=== PATIENT | male | born 1965 | race Caucasian/White ===

== ENCOUNTER 2021-07-29 08:27 | Emergency (ER) | payer MEDICARE, MEDICAID, SELFPAY ==
--- NOTE | ~2021-07-29 | XR_ITS ---
EXAMINATION: XR CHEST CLINICAL INFORMATION: Cough COMPARISON: None TECHNIQUE: 2 views of the chest were obtained. FINDINGS: No significant abnormality is noted involving the heart, lungs, mediastinum, bony thorax or soft tissues. XR/XR chest 2V IMPRESSION: Unremarkable examination.
[2021-07-29 08:32] VITALS: BP 137/90; BP 160/90; PULSE 100; PULSE 110; RESP 18; TEMP 36.9; O2SAT 96; O2SAT 99; BMI 25.3
--- NOTE | 2021-07-29 09:26 | ED_ITS ---
HPI - Psych General Chief Complaint: Psychiatric Symptoms Stated Complaint: SI,VOLUNTARY Time Seen by Provider: 07/29/21 09:06 Source: patient and EMS Mode of arrival: EMS Limitations: no limitations History of Present Illness HPI Narrative: 56 yo male with history of MS on Ocrevus Q 6 months here after making statement last evening I just want to end it all. Patient denies feeling suicidal today. He reports he was very frustrated last evening and overwhelmed with his MS diagnosis. Said to his I want to end it all. patient tells me now it was a stupid thing to say and I was just frustrated. patient currently denies any suicidal or homicidal ideations. Denies any hallucinations. He tells me he does have intermittent depression which he relates to his MS diagnosis. Patient tells me does go to an [facility] at [place] and has available to him psychiatrist therapist. He is complaining of a cough which is after the last 2 weeks. He denies any fever, shortness of breath, leg swelling or pain, chest pain. Related Data Allergies Allergy/AdvReac Type Severity Reaction Status Date / Time No Known Allergies Allergy Verified 07/29/21 08:40 Review of Systems Review of Systems: Yes all other systems are reviewed and are negative Constitutional: Constitutional: Reports no additional constitutional complaints, Denies body ache(s), Denies chills, Denies fever(s), Denies headache(s) and Denies weakness Eyes: Eyes: Reports no additional eye complaints and Denies change in vision ENT: Reports system reviewed and no additional complaints, except as documented, Denies dizziness, Denies headache(s), Denies nasal congestion, Denies nasal discharge and Denies neck pain Cardiovascular: Cardiovascular: Reports no additional cardiovascular complaints, Denies chest pain, Denies leg edema and Denies dyspnea Respiratory: Respiratory: Reports no additional respiratory complaints, Reports cough and Denies dyspnea Gastrointestinal: Gastrointestinal: Reports no additional gastrointestinal complaints, Denies abdominal pain, Denies diarrhea, Denies nausea and Denies vomiting Genitourinary: Genitourinary: Denies urinary incontinence Musculoskeletal: Musculoskeletal: Reports no additional musculoskeletal complaints, Denies back pain, Denies arthralgias, Denies joint swelling, Denies neck pain, Denies numbness and Denies tingling Integumentary/Breasts: Skin/Breast: Reports system reviewed and no additional complaints, except as docu and Denies rash Neurologic: Reports system reviewed and no additional complaints, except as documented, Denies dizziness, Denies headache(s), Denies numbness, Denies tingling and Denies weakness Psychiatric: Psychiatric: Denies anxiety, Reports depression, Denies visual hallucinations, Denies hallucinations, Denies homicidal ideation and Denies suicidal ideation PMF Past Medical History Attestation statement: The following information was validated with the patient. Source: old records reviewed Medical History (Reviewed 07/29/21 @ 09: by Talia Garrido NP) Abnormal gait due to muscle weakness MS (multiple sclerosis) Surgical History (Reviewed 07/29/21 @ : by Talia Garrido NP) No pertinent past surgical history Social History Social History (Reviewed 07/29/21 @ : by Talia Garrido NP) Advance Directives: No Advance Directives Information Provided: No Physical Exam Vital Signs: Vital Signs: Last Vital Signs Temp 98.9 F 07/29/21 11:08 Pulse 90 07/29/21 11:08 Resp 15 07/29/21 11:08 BP 145/92 H 07/29/21 11:08 Pulse Ox 96 07/29/21 11:08 BMI result Body Mass Index 25.3 Const: General: cooperative, healthy appearing, comfortable and no acute distress Orientation/consciousness: patient oriented x3 Limitations: no limitations HENMT: Head: Yes normal to inspection Ears: hearing grossly normal bilat erally General nose exam: Normal external nose present Face and sinus: Yes normal facial exam Mouth: Normal oral and palatal mucosa present Throat: Yes posterior oropharynx normal Eyes: General: appearance normal, both eyes and all related structures Pupils: Equal, round and reactive pupils present Neck: Neck: Yes normal visual inspection Chest: Chest palpation & inspection: normal inspection of the chest Resp: Effort & Inspection: normal respiratory effort Auscultation: clear to auscultation bilaterally Cardio: Rate: regular rate Rhythm: regular rhythm Peripheral pulses: Peripheral pulses 2+ throughout GI: Inspection: Yes normal to inspection Palpation (GI): Soft to palpation and nontender Auscultation: normal bowel sounds Back/Spine/Pelvis: Thoracic/Lumbar Spine: thoracic and lumbar spine normal to inspection Skin: General skin exam: no rashes or lesions noted Neuro: Other: WC bound at baseline-LE weakness General: patient oriented x3 and normal sensation to monofilament Cranial nerves: Yes CN's II-XII intact bilaterally and Yes Equal, round and reactive pupils present Extrem: General: Yes normal to inspection Course Course Course Narrative: 56 yo male here after making vague SI statement last evening. Now denies SI and states I would never hurt myself. He does report a history of MS and and this makes him feel depressed with no other associated symptoms. He has received COVIDx3 Will check COVID screen, chest x-ray, have patient be seen by care team once medically cleared. 1215- patient seen by care team. Plan for discharge home with outpatient providers. Again no suicidal Ideations.. COVID screen is positive. Chest x-ray shows no acute finding. Patient tells me he has had symptoms of a cough greater than 2 weeks. He has no hypoxia, tachypnea, fever with clear lung sounds. At this point we discussed that he is not a candidate for any monoclonal antibodies or oral antivirals. He also does not qualify for admission. We discussed treating symptoms at home with [facility] care. Reviewed worrisome signs and symptoms of when to return to the emergency department. Comfortable discharge home. [facility] - Psych Medical Records Attestation: I reviewed the patient's medical records. Lab Data Attestation: I reviewed the patient's lab results. Labs: Lab Results 07/29/21 Range/Units 09:52 COVID-19 ([facility]) Positive A (Negative) COVID-19 Clin Com See Note Imaging Data Chest x-ray: Attestation: I personally reviewed and interpreted this imaging study as follows: Radiologist's impression: XAMINATION: XR CHEST CLINICAL INFORMATION: Cough COMPARISON: None TECHNIQUE: 2 views of the chest were obtained. FINDINGS: No significant abnormality is noted involving the heart, lungs, mediastinum, bony thorax or soft tissues. XR/XR chest 2V IMPRESSION: Unremarkable examination. Discharge Plan Discharge Clinical Impression: Adjustment disorder, COVID-19 Patient Disposition: Home, Self-Care Instructions: Stress (ED), COVID-19 (Coronavirus Disease 2019) (ED) Additional Instructions: your COVID test is positive your x-ray shows no signs of infection since you have been symptomatic for more than 2 weeks you do not need to continue to quarantine. unfortunately at this point your not a candidate for any treatments for COVID continue supportive care Follow-up with [facility] Referrals: Physician,Nonstaff [Primary Care Provider] - 2 days (as needed) Interventions: ED Discharge Assessment Last Done: 07/29/21 12:11 Discharge Date/Time: 07/29/21 12:11
[2021-07-29 11:08] VITALS: BP 145/92; PULSE 90; RESP 15; TEMP 37.2; O2SAT 96
[2021-07-29 11:15] LABS: COVID-19 Test Positive (Negative)
--- NOTE | 2021-07-29 12:16 | MHC.CARE ---
CARE Team consulted to meet with patient who made suicidal statements to his girlfriend this morning and the denied upon arrival via ambulance to the ED, he is unknown to [facility]. Patient was in room 15 in the main ED, he was alert, oriented and easily engaged, hygiene and grooming unremarkable, appeared his stated age, maintained appropriate eye contact, memory appeared intact. Insight good, judgement fair, patient seemed to be answering questions with honesty and thought, no signs of psychosis. Stated that he was having a, ?[employer]ity green party,? last night, has not been feeling well for a couple weeks and was having more difficulty than usual, needed help from his girlfriend to roll over in bed. Patient admitted he told he did not want to live this way and would rather be . At this time he reported feeling embarrassed and said he completely understood the reason his GF called 911. Patient stated that he want desperately to live longer, knows his condition is worsening but does not want to shorten his life in any way. Has no history of suicide attempts or gestures, made a similar threat in 2016 and was evaluated and cleared. Call to patient?s girlfriend, Rebecca ([phone]), she confirmed that patient has been more irritable as his condition declines, she was anxious to leave him home alone in that state while she went to work and thought at the time he may do something impulsive. Girlfriend added that because patient [place] not have [place] he is unable to get necessary home services and all of that falls on her, is likely moving to [place] soon. Gave contact info for financial counseling here at [facility] to learn about [facility] but patient said he is working with a [facility] counseling at the [facility] and has an appt next week. She has no concerns about having patient return home today and will come pick him up, his scooter (only mobility device) is in her car. Patient in agreement he needs counseling and will make an appointment at the [facility] where he has been before, he would like to learn better coping skills and to manage his frustration, especially as his functioning declines. CARE Team will call patient for follow up in 24 -48 hours
== END 2021-07-29 12:11 | disposition home or self-care (01) ==
PROVIDERS: Nurse Practitioner Family; Emergency Provider Emergency Medicine
DX: U07.1 COVID-19 (principal); F33.1 Major depressive disorder, recurrent, moderate; R45.851 Suicidal ideations; R05.9 Cough, unspecified; Z79.899 Other long term (current) drug therapy
CPT/HCPCS: 71046; 87635; 99284